=== PATIENT | female | born 1970 | race Caucasian/White ===

== ENCOUNTER → 2016-08-19 | Outpatient (CLI) | payer BC ==
--- NOTE | 2016-08-19 09:02 | KCIC ---
EXAM: Bilateral digital screening mammogram. HISTORY: 46-year-old female presents for screening mammography. COMPARISON: 08/13/2015 TECHNIQUE: Full field digital craniocaudal and mediolateral oblique standard and breast implant displaced views of both breasts are obtained. Computer-aided detection is applied. FINDINGS: Breast parenchymal composition: Level D - Extremely dense. There is no new suspicious mass, calcification or architectural distortion within either breast. There are unremarkable bilateral breast implants. IMPRESSION: BI-RADS Category 2: Benign findings. Annual mammography is recommended. This study was interpreted with the benefit of Computerized Aided Detection (CAD). Mammography is not 100% sensitive in detecting breast cancer. Therefore, a self breast exam and a clinical breast exam are very important. A negative mammogram does not negate a clinically suspicious finding and should not result in a delay in biopsying a clinically suspicious abnormality. The patient information was entered into the reminder system with a target for her next mammogram. Electronically signed by: Clau Clark (Aug 19, 2016 09:00:39)
== END | disposition home or self-care (01) ==
LOC: KCIC MAMMO 07:47
PROVIDERS: ATTEND Family Medicine
DX: Z12.31 Encounter for screening mammogram for malignant neoplasm of breast (principal)
CPT/HCPCS: G0202; 77067

== ENCOUNTER → 2018-04-03 | Outpatient (CLI) | payer BC ==
[~2018-04-03] MED LIST: CITA20TA6 PO; DOCU-109 PO; FERR325T14 PO
[2018-04-03 16:10] LABS: BASO # 0.1 x10^3/uL (0.0-0.2); BASO % 1 % (0-3); EOS # 0.1 x10^3/uL (0.0-0.7); EOS % 2 % (0-3); HEMATOCRIT 38.4 % (36.0-47.0); HEMOGLOBIN 13.6 g/dL (12.0-15.5); LYMPH # 1.9 x10^3/uL (1.0-4.8); LYMPH % 32 % (24-48); MEAN CORPUSCULAR HEMOGLOBIN 30 pg (25-35); MEAN CORPUSCULAR HGB CONC 35 g/dL (31-37); MEAN CORPUSCULAR VOLUME 85 fL (79-100); MONO # 0.4 x10^3/uL (0.0-1.1); MONO % 6 % (0-9); NEUT # 3.6 x10^3uL (1.8-7.7); NEUT % 59 % (31-73); PLATELET COUNT 255 x10^3/uL (140-400); RED BLOOD COUNT 4.54 x10^6/uL (3.50-5.40); RED CELL DISTRIBUTION WIDTH 12.4 % (11.5-14.5); WHITE BLOOD COUNT 6.1 x10^3/uL (4.0-11.0)
[2018-04-03 16:35] LABS: ALBUMIN 4.3 g/dL (3.4-5.0); CALCIUM 8.7 mg/dL (8.5-10.1); CREATININE 0.8 mg/dL (0.6-1.0); GFR 77.2; POTASSIUM 3.6 mmol/L (3.5-5.1); TOTAL BILIRUBIN 0.4 mg/dL (0.2-1.0)
== END | disposition home or self-care (01) ==
LOC: SURGPAT 13:20
PROVIDERS: ATTEND Surgery
DX: Z01.818 Encounter for other preprocedural examination (principal); K80.20 Calculus of gallbladder without cholecystitis without obstruction
CPT/HCPCS: 36415; 80048; 82040; 82247; 85025

== ENCOUNTER 2018-04-09 06:36 | Day surgery (SDC) | payer BC ==
[~2018-04-09] VITALS: Ht 165.1 cm; Wt 71.7 kg
[~2018-04-09 06:36] MED LIST changes: +BUPIVACAINE-EPI 0.5%-1:200000 50 ML VIAL. ONE; +GLUCAGON,HUMAN RECOMBINANT 1 MG/ML VIAL. ONE; +IOHEXOL 300 MG/ML 100ML VIAL. ONE; +SURGICEL HEMOSTAT 4X8 EACH. ONE
[2018-04-09] MEDS ORDERED: PROCHLORPERAZINE 10 MG/2 ML VIAL. IV PRN (07:00)
[2018-04-09] MEDS ORDERED: HYDROmorphone 2 MG/ML VIAL IV PRN (07:00)
[2018-04-09] MEDS ORDERED: MORPHINE SULFATE 2 MG/ML VIAL. IV PRN (07:00)
[2018-04-09] MEDS ORDERED: LIDOCAINE 1% PF 2 ML VIAL. ID PRN (07:00)
[2018-04-09] MEDS ORDERED: fentaNYL PF VIAL 100 MCG/2 ML VIAL IV PRN (07:00)
[2018-04-09] MEDS ORDERED: IV RINGERS,LACTATED 1000ML 1,000 ML IV SCH (07:00)
[2018-04-09] MEDS ORDERED: ONDANSETRON PF 4 MG/2 ML VIAL. IV PRN (07:00)
[2018-04-09] MEDS ORDERED: PROPOFOL 20 ML IV ONE (07:23)
[2018-04-09] MEDS ORDERED: KETOROLAC 30 MG/ML INJ FOR OR. INJ ONE (07:23)
[2018-04-09] MEDS ORDERED: ROCURONIUM 50 MG/5 ML VIAL. ONE (07:23)
[2018-04-09] MEDS ORDERED: DEXAMETHASONE SOD PHOS 20 MG/5 ML VIAL. ONE (07:23)
[2018-04-09] MEDS ORDERED: ONDANSETRON PF 4 MG/2 ML VIAL. ONE (07:23)
[2018-04-09] MEDS ORDERED: fentaNYL PF VIAL 100 MCG/2 ML VIAL ONE ×3 (07:24→09:37)
[2018-04-09] MEDS ORDERED: FAMOTIDINE 20 MG/2 ML VIAL ONE (07:24)
[2018-04-09] MEDS ORDERED: MIDAZOLAM HCL/PF 2 MG/2 ML VIAL. ONE (07:24)
[2018-04-09] MEDS ORDERED: NEOSTIGMINE METHYLSULFATE 5 MG/5 ML SYRINGE. ONE (08:23)
[2018-04-09] MEDS ORDERED: GLYCOPYRROLATE 1 MG/5 ML VIAL. ONE (08:23)
[2018-04-09] MEDS ORDERED: SEVOFLURANE 61 TO 120 MINUTES. IH ONE (08:27)
[2018-04-09] MEDS ORDERED: ePHEDrine PF IN SALINE 50 MG/5 ML DISP.SYRIN IV ONE (08:29)
--- NOTE | 2018-04-09 08:49 | RAD ---
C-arm fluoroscopy with fluoroscopic spot views Clinical indications: Cholecystectomy. Intraoperative cholangiogram. Total fluoroscopic time: 0.17 minutes. Total fluoroscopic spot views: 4. IMPRESSION: Fluoroscopic spot views demonstrate opacification of the extrahepatic biliary tree with free flow of contrast material from the common bile duct into the duodenum. No stricture or common bile duct stone is evident. Electronically signed by: Freddy Grijalva MD (04/09/2018 8:45 AM) [facility]
[2018-04-09 09:01] LABS: U PREG PATIENT NEGATIVE (NEG)
[2018-04-09] MEDS: fentaNYL PF VIAL 100 MCG/2 ML VIAL IV PRN ×2 (09:42→09:46)
--- NOTE | 2018-04-09 09:57 | OP ---
DATE OF SURGERY: 04/09/2018 PREOPERATIVE DIAGNOSIS: Symptomatic cholelithiasis. POSTOPERATIVE DIAGNOSIS: Symptomatic cholelithiasis. PROCEDURE: Laparoscopic cholecystectomy with cholangiogram, lysis of adhesions. SURGEON: Amilcar Tse MD. YOUTH TEACHER: FA. Amanda. ANESTHESIA: General endotracheal. ESTIMATED BLOOD LOSS: 10. IV FLUID: 900. INDICATIONS: The patient is a 48-year-old with epigastric fullness and pain after meals. Ultrasound shows stones. She is brought for cholecystectomy. OPERATIVE FINDINGS: The liver was smooth and sharp. The gallbladder was supple. Cholangiograms were normal, showing a distal insertion of the cystic duct to the common duct. There were some right-sided adhesions that were taken down as a possible source of some of her discomfort. Remainder of the abdomen failed to reveal obvious abnormalities. DESCRIPTION OF PROCEDURE: The patient was brought to the operating suite, given a general endotracheal anesthetic, and the abdomen prepped and draped in usual sterile fashion. An infraumbilical incision was infiltrated with local anesthetic, incised and a 5 mm Visiport used to safely gain access into the abdominal cavity, taking care to avoid injury to abdominal contents. Pneumoperitoneum established, inspection carried out with results as noted above. With the table in reverse Trendelenburg rolled to the left, the epigastric and midclavicular ports were placed under direct vision. The lateral port location was used for an "alligator" grasper. Gallbladder retracted superolaterally, and the cystic duct and cystic artery were exposed. Duct was clipped on the gallbladder side. Cholangiograms were made. These were normal. In light of this, the catheter was removed. The cystic duct was clipped x 3 and divided, taking care to avoid injury or compromise the common duct. An anterior and posterior branch of the cystic artery were clipped and divided and the gallbladder freed from the bed with cautery dissection and placed in an EndoCatch bag. Good hemostasis was present. No evidence of bile leak seen. Table returned to level. Gallbladder delivered through the epigastric incision. Epigastric incision closed with interrupted 0 Vicryl suture. Intra-abdominal pressure decreased to 6 cm of water. No bleeding from the epigastric closure or from the midclavicular or lateral port site or from the location of the alligator. Abdomen decompressed, camera slowly removed, no bleeding seen. Skin incisions closed with subcuticular 4-0 Monocryl. Steri-Strips and sterile dressings applied. The patient awakened from her anesthetic and taken to the recovery room in satisfactory condition. AMILCAR TSE MD DR: MARIELY/cedric JOB#: [id number] / [id number]
--- NOTE | 2018-04-09 10:35 | DISCH ---
DISCHARGE INSTRUCTIONS Condition on Discharge Condition on Discharge: Stable Activity After Discharge Activity Instructions for Disc: Resume previous activity, Activity as tolerated Lifting Instructions after Dis: No heavy lifting Driving Instructions after Dis: Do not drive (3-4 days) Diet after Discharge Diet after Discharge: Regular Wound Incision Care Wound/Incision Care: Ice to area for comfort Other wound/incision instructi: november showmonday Follow-Up Follow up with: Olman next week CHAITANYA TSE MD Apr 09, 2018 10:35
--- NOTE | 2018-04-09 10:37 | PDOC ---
BRIEF OPERATIVE NOTE Date: Apr 09, 2018 Pre-Op Diagnosis symptomatic cholelithiasis Post-Op Diagnosis same, adhesions Procedure Performed l/s liss with CINDY levy Surgeon Olman Activity Director Faustina PATTEN Anesthesia Type: General Blood Loss 10cc IV Fluid 900cc Specimens Obtained GB Findings normal grams, some right sided adhesions Complications none Operative Note Wk # [id number] CHAITANYA TSE MD Apr 09, 2018 10:37
[2018-04-09] MEDS ORDERED: oxyCODONE/APAP 5/325 1 TAB TABLET ONE (11:17)
[2018-04-09] MEDS ORDERED: oxyCODONE/APAP 5/325 1 TAB TABLET PO ONE (11:30)
[2018-04-09 11:35] VITALS: BP 104/68
--- NOTE | 2018-04-10 17:10 | PATHOLOGY ---
[facility] Accession Number: [id number] . 01 Material submitted: . GALLBLADDER . 01 Clinician provided ICD-10: K80.20 . 01 Clinical history: . Cholelithiasis . 02 Diagnosis: Gallbladder, laparoscopic cholecystectomy: - Cholelithiasis. - Cholesterolosis, focal. - Chronic cholecystitis. (JPM/at;04/10/2018) QTA/04/10/2018 . 02 Comment: There is no evidence of malignancy. . 02 Electronically signed: . Douglas Méndez MD, Pathologist NPI- [id number] . 01 Gross description: . The specimen is received in formalin, labeled "Alberto, Leena, gallbladder" and consists of an intact green-tai and shiny gallbladder measuring 8.0 x 3.3 x 2.4 cm. Opening reveals the gallbladder is filled with viscous green bile and a single mulberry green calculus measuring 1.1 x 1.1 cm. The mucosa is green with focal yellow highlights and a wall thickness of 0.1 cm. No masses or lesions are identified. Shower Enclosure Installer sections are submitted in A1. (SDY; 04/09/2018) SYU/SYU . 02 Pathologist provided ICD-10: K80.10 . 02 CPT . 941338 Specimen Comment: A courtesy copy of this report has been sent to Specimen Comment: [phone], . Specimen Comment: Report sent to / DR COBIAN [facility]formed at: [facility] [address], [place], [place] [id number] MD Octaviano Mccormick MD Phone: [phone] [facility]formed at: [facility] [address] [place], [place] [id number] MD Douglas Méndez MD Phone: [phone]
== END 2018-04-09 11:35 | disposition home or self-care (01) ==
LOC: SURG 06:36
PROVIDERS: ATTEND Surgery
DX: K80.10 Calculus of gallbladder with chronic cholecystitis without obstruction (principal); F32.9 Major depressive disorder, single episode, unspecified; Z79.899 Other long term (current) drug therapy; K21.9 Gastro-esophageal reflux disease without esophagitis; N73.6 Female pelvic peritoneal adhesions (postinfective); Z98.890 Other specified postprocedural states; Z80.0 Family history of malignant neoplasm of digestive organs
CPT/HCPCS: 47563; 74300; 81025; 88304; A7015; J0690; J1100; J1610; J1885; J2250; J2405; J2704; J2710; J3010; J3490; J7030; Q9967; S0028